=== PATIENT | female | born 1940 | race Caucasian/White ===

== ENCOUNTER → 2016-05-21 | Outpatient (CLI) | payer OTHER | LOC: BHFA 13:30 | PROVIDERS: ATTEND Internal Medicine Interventional Cardiology | DX: R06.02 Shortness of breath (principal); I47.1 Supraventricular tachycardia | CPT/HCPCS: 78452; 93017; A9500 ==

== ENCOUNTER 2016-10-10 09:36 | Emergency (ER) | payer OTHER ==
--- NOTE | 2016-10-10 09:44 | EDPHY ---
HPI/HX/ROS/PE/MDM Narrative: CHIEF COMPLAINT: SVT HPI: The patient is a 76-year-old female with history of SVT, brought in by EMS with sudden onset of rapid heart rate this morning at 8:30 a.m. The patient was walking around and felt very weak. She had a rapid heart rate at that time. Her extremities began to tingle. No associated chest pain. Patient states symptoms felt similar to previous SVT. EMS arrived, cardiac rhythm strip revealed SVT. Patient received 12mg Adenosine during transport and converted to normal sinus rhythm. BP in the field was 126/86. She received 4mg Zofran during transport. 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 REVIEW OF SYSTEMS: Aside from elements discussed in the HPI, a comprehensive 10-point review of systems was reviewed and is negative. PMH: Hypothyroid, SVT, Hypothyroid. SOCIAL HISTORY: . Retired. PHYSICAL EXAM: General: Patient is alert, in no acute distress. ENT: Eyes are normal to inspection. ENT inspection normal. Neck: Normal inspection. Full range of motion. Respiratory: No respiratory distress. Breath sounds normal bilaterally. Cardiovascular: Regular rate and rhythm. Strong peripheral pulses. Abdomen: The abdomen is nontender to palpation. There are no peritoneal signs. There are normal bowel sounds. Back: Normal to inspection. No tenderness to palpation. Skin: Normal color. No rash. Warm and dry. Extremities: Normal appearance. Full range of motion. Neuro: Oriented x3. Normal motor function. Normal sensory function. ED Course: Plan for CBC and CHEM, and Troponin. EKG was ordered and interpreted by myself. Please see FRS system for official reading: Sinus tachycardia, rate 112. 11:15 a.m.: I discussed findings with the patient. CBC and CHEM are unremarkable. Patient is feeling better. Troponin is pending. 12:00 p.m.: I reevaluated the patient, she is not feeling very well. I ordered repeat EKG. Patient has normal troponin. Repeat EKG is normal. Please see FRS system for official reading. Plan to discharge patient home. She will followup with [facility]. MDM: This patient presents after what sounds like a clear episode of SVT, terminated prior to arrival, with history of same. She remained asymptomatic in the ED with no signs of recurrent arrhythmia or ACS. There is no report of chest pain to suggest PE. The patient is not hyperthyroid. I offered her admission to the hospital for further workup and observation but she declines. We discussed strict return precautions. At time of discharge, her HR has normalized. - Data Points Laboratory Results: Laboratory Results 10/10/16 10:05 10/10/16 10:05 10/10/16 10/10/16 10/10/16 10:08 10:05 10:05 WBC 5.68 10^3/uL 10^3/uL (3.80-9.50) RBC 5.10 10^6/uL 10^6/uL (4.18-5.33) Hgb 15.1 g/dL g/dL (12.6-16.3) Hct 44.0 % % (38.0-47.0) MCV 86.3 fL fL (81.5-99.8) MCH 29.6 pg pg (27.9-34.1) MCHC 34.3 g/dL g/dL (32.4-36.7) RDW 13.2 % % (11.5-15.2) Plt Count 165 10^3/uL 10^3/uL (150-400) MPV 9.5 fL fL (8.7-11.7) Neut % (Auto) 78.1 % H % (39.3-74.2) Lymph % (Auto) 12.0 % L % (15.0-45.0) [place] % (Auto) 8.5 % % (4.5-13.0) Eos % (Auto) 0.5 % L % (0.6-7.6) Baso % (Auto) 0.5 % % (0.3-1.7) Nucleat RBC Rel Count 0.0 % % (0.0-0.2) Absolute Neuts (auto) 4.44 10^3/uL 10^3/uL (1.70-6.50) Absolute Lymphs (auto) 0.68 10^3/uL L 10^3/uL (1.00-3.00) Absolute Monos (auto) 0.48 10^3/uL 10^3/uL (0.30-0.80) Absolute Eos (auto) 0.03 10^3/uL 10^3/uL (0.03-0.40) Absolute Basos (auto) 0.03 10^3/uL 10^3/uL (0.02-0.10) Absolute Nucleated RBC 0.00 10^3/uL 10^3/uL (0-0.01) Immature Gran % 0.4 % % (0.0-1.1) Immature Gran # 0.02 10^3/uL 10^3/uL (0.00-0.10) Sodium 139 mEq/L mEq/L (134-144) Potassium 3.4 mEq/L L mEq/L (3.5-5.2) Chloride 104 mEq/L mEq/L (97-110) Carbon Dioxide 24 mEq/l mEq/l (22-31) Anion Gap 11 mEq/L mEq/L (8-16) BUN 10 mg/dL mg/dL (7-23) Creatinine 0.7 mg/dL mg/dL (0.6-1.0) Estimated GFR > 60 Glucose 71 mg/dL mg/dL (70-100) Calcium 8.9 mg/dL mg/dL (8.5-10.4) Troponin I 0.013 ng/mL ng/mL (0-0.034) TSH 6.030 uIU/mL H uIU/mL (0.465-4.680) General Initial Vital Signs: Initial Vital Signs Temperature (C) 36.4 C 10/10/16 09:36 Heart Rate 106 H 10/10/16 09:36 Respiratory Rate 16 10/10/16 09:36 Blood Pressure 156/98 H 10/10/16 09:36 O2 Sat (%) 98 10/10/16 09:36 O2 Delivery Mode Room Air Allergies/Adverse Reactions: egg Allergy (Verified 05/23/12 08:38) Penicillins Allergy (Verified 05/23/12 08:38) Sulfa (Sulfonamide Antibiotics) [Sulfa(Sulfonamide Antibiotics)] Allergy ( Verified 05/23/12 08:38) Home Medications: Medication Instructions Recorded Atenolol [Tenormin 25 mg (RX)] 25 mg PO DAILY 05/23/12 Methimazole [Tapazole 5MG (RX)] 5 mg PO 05/23/12 Departure - Departure Disposition: Home, Routine, Self-Care Clinical Impression: SVT (supraventricular tachycardia) Condition: Good Instructions: Supraventricular Tachycardia (ED) Additional Instructions: Please followup with [facility] for further evaluation. Return to the Emergency Department with recurrent symptoms. Referrals: Edgardo Jansen MD [Primary Care Provider] - As per Instructions [facility] [Provider Group] - As per Instructions Report Scribed for: Stan Garcia Report Scribed by: Baylee Joseph Date of Report: 10/10/16 Time of Report: 09:44 Physician Review and Approval Statement: Portions of this note were transcribed by a medical charge entry specialist. I personally performed the history, physical exam, and medical decision-making; and confirmed the accuracy of the information in the transcribed note.
[2016-10-10 09:51] VITALS: TEMP 97.5
--- NOTE | 2016-10-10 10:00 | CPEKG ---
Heart Rate: 112 RR Interval: 536 P-R Interval: 176 QRSD Interval: 78 QT Interval: 328 QTC Interval: 448 P [place]: 85 QRS [place]: -5 T Wave [place]: 54 EKG Severity - OTHERWISE NORMAL ECG - EKG Impression: SINUS TACHYCARDIA Electronically Signed By: Mushtaq Rogel 11-Oct-2016 08:04:26
[2016-10-10 10:17] LABS: % IMMATURE GRANULYOCYTES 0.4 % (0.0-1.1); ABSOLUTE IMMATURE GRANULOCYTES 0.02 10^3/uL (0.00-0.10); ADD DIFF? NO; ADD MORPH? NO; ADD SCAN? NO; ATYPICAL LYMPHOCYTE FLAG 0 (0-99); FRAGMENT RBC FLAG 0 (0-99); HEMOGLOBIN 15.1 g/dL (12.6-16.3); LEFT SHIFT FLG 0 (0-99); LIPEMIA HEMOLYSIS FLAG 90 (0-99); MEAN CELL HEMOGLOBIN 29.6 pg (27.9-34.1); MEAN CELL HEMOGLOBIN CONCENTR. 34.3 g/dL (32.4-36.7); MEAN CELL VOLUME 86.3 fL (81.5-99.8); MEAN PLATELET VOLUME 9.5 fL (8.7-11.7); PLATELET CLUMPS FLAG 10 (0-99); PLATELET COUNT 165 10^3/uL (150-400); RED CELL DISTRIBUTION WIDTH 13.2 % (11.5-15.2)
[2016-10-10 10:29] LABS: ANION GAP 11 mEq/L (8-16); CALCIUM 8.9 mg/dL (8.5-10.4); CARBON DIOXIDE 24 mEq/l (22-31); CHLORIDE 104 mEq/L (97-110); CREATININE 0.7 mg/dL (0.6-1.0); GLOMERULAR FILTRATION RATE > 60; GLUCOSE 71 mg/dL (70-100); POTASSIUM 3.4 mEq/L (3.5-5.2); SODIUM 139 mEq/L (134-144)
--- NOTE | 2016-10-10 12:18 | CPEKG ---
Heart Rate: 96 RR Interval: 625 P-R Interval: 180 QRSD Interval: 72 QT Interval: 336 QTC Interval: 425 P [place]: 79 QRS [place]: 25 T Wave [place]: 55 EKG Severity - NORMAL ECG - EKG Impression: SINUS RHYTHM Electronically Signed By: Mushtaq Rogel 11-Oct-2016 08:04:17
[2016-10-10 12:34] VITALS: BP 129/71; PULSE 101; RESP 16; O2SAT 98
== END 2016-10-10 12:30 | disposition home or self-care (01) ==
LOC: EDUNIT#
DX: I47.1 Supraventricular tachycardia (principal)

== ENCOUNTER → 2016-10-23 | Outpatient (CLI) | payer OTHER | LOC: BHFA 11:00 | PROVIDERS: ATTEND Internal Medicine Cardiovascular Disease | DX: I47.1 Supraventricular tachycardia (principal); R55 Syncope and collapse; R00.2 Palpitations ==

== ENCOUNTER → 2016-11-14 | Outpatient (CLI) | payer OTHER | LOC: FIMAGING 08:17 | PROVIDERS: ATTEND Family Medicine | DX: M51.36 Other intervertebral disc degeneration, lumbar region (principal); M51.37 Other intervertebral disc degeneration, lumbosacral region; M12.88 Other specific arthropathies, not elsewhere classified, other specified site; M99.73 Connective tissue and disc stenosis of intervertebral foramina of lumbar region; M51.26 Other intervertebral disc displacement, lumbar region ==

== ENCOUNTER 2016-12-28 13:57 | Emergency (ER) | payer OTHER ==
[2016-12-28 16:31] LABS: COLOR YELLOW; LEUKOCYTE ESTERASE,URINE 2+ (NEGATIVE); NITRITE,URINE NEGATIVE (NEGATIVE)
--- NOTE | 2016-12-28 16:32 | CPEKG ---
Heart Rate: 62 RR Interval: 968 P-R Interval: 208 QRSD Interval: 86 QT Interval: 412 QTC Interval: [address] [place]: 55 QRS [place]: 12 T Wave [place]: 44 EKG Severity - NORMAL ECG - EKG Impression: SINUS RHYTHM Electronically Signed By: Hiram Monteiro 28-Dec-2016 15:45:05
--- NOTE | 2016-12-28 16:44 | EDPHY ---
H & P Time Seen by Provider: 12/28/16 15:58 HPI/ROS: CHIEF COMPLAINT: Tired chills and no energy HISTORY OF PRESENT ILLNESS: This patient presents with 3 months of multiple symptoms including feeling some pressure in her legs and some discomfort in her feet. She states that at night both her legs will feel very weak when she tries to get up to go to the bathroom and she walks around for about 5 minutes she feels better. She had neurology workup including an MRI which was performed on November 14 with noted some mild spinal stenosis but no cauda equina syndrome or other surgical process. She also has thyroid disease and is being monitored for that. Over the past 3 days she has felt just more tired and with less energy. She has had occasional chills but no actual fever. No cough or chest pain or shortness of breath. No dysuria or hematuria. No injury or fall. No headache or visual symptoms. REVIEW OF SYSTEMS: Eye: no change in vision ENT: no sore throat Cardiac: no chest pain or syncope; intermittent sensation of palpitations Pulmonary: no cough or SOB Abdomen: no vomiting, diarrhea, abdominal pain Musculoskeletal: no back pain Skin: no rash Neuro: no headache, HPI Constitutional: HPI : no urinary symptoms A comprehensive 10 point review of systems is otherwise negative aside from elements mentioned in the history of present illness. PAST MEDICAL HISTORY: Includes hypothyroid, SVT, breast cancer. Social history: Lives independently General Appearance: Alert and conversant, cooperative. Eyes: No scleral icterus. ENT, Mouth: Normal mucous membranes. Respiratory: Normal respiratory effort, breath sounds equal, lungs are clear to auscultation. Cardiovascular: Regular rate and rhythm. Gastrointestinal: Abdomen is soft and non tender. Neurological: Alert and oriented x3. Normally conversant. Face symmetric, normal movement and sensation in all extremities. Toes downgoing, no clonus. Skin: Warm and dry, no rashes. Musculoskeletal: No peripheral edema and no joint swelling. Psychiatric: Not agitated. Emergency Department course/MDM: 1705: Results discussed, no evidence of upper tract infection, Macrobid for 7 days. Normal creatinine. No evidence of pyelonephritis. Further leg weakness symptoms are stable and can be evaluated by her primary care physician. I do not think she has acute neurosurgical process, or Guillain -[place], acute demyelinating process, or spinal cord compromise. Smoking Status: Never smoked Constitutional: Initial Vital Signs Temperature (C) 36.7 C 12/28/16 14:06 Heart Rate 74 12/28/16 14:06 Respiratory Rate 12 12/28/16 14:06 Blood Pressure 139/69 H 12/28/16 14:06 O2 Sat (%) 95 12/28/16 14:06 O2 Delivery Mode Room Air Allergies/Adverse Reactions: egg Allergy (Verified 05/23/12 08:38) Penicillins Allergy (Verified 05/23/12 08:38) Sulfa (Sulfonamide Antibiotics) [Sulfa(Sulfonamide Antibiotics)] Allergy ( Verified 05/23/12 08:38) Home Medications: Medication Instructions Recorded Atenolol [Tenormin 25 mg (RX)] 25 mg PO DAILY 05/23/12 Methimazole [Tapazole 5MG (RX)] 5 mg PO 05/23/12 Nitrofurantoin Macrobid [Macrobid] 100 mg PO Q12 #14 cap 12/28/16 Medical Decision Making - Diagnostics EKG Interpretation: 12-lead EKG interpreted by me; official reading is in trace master. My interpretation is sinus rhythm rate 62 otherwise normal. - Data Points Laboratory Results: Laboratory Results 12/28/16 16:19 12/28/16 16:35 12/28/16 12/28/16 12/28/16 16:35 16:25 16:19 WBC 5.75 10^3/uL 10^3/uL (3.80-9.50) RBC 4.71 10^6/uL 10^6/uL (4.18-5.33) Hgb 14.0 g/dL g/dL (12.6-16.3) Hct 41.4 % % (38.0-47.0) MCV 87.9 fL fL (81.5-99.8) MCH 29.7 pg pg (27.9-34.1) MCHC 33.8 g/dL g/dL (32.4-36.7) RDW 12.8 % % (11.5-15.2) Plt Count 190 10^3/uL 10^3/uL (150-400) MPV 9.9 fL fL (8.7-11.7) Neut % (Auto) 69.7 % % (39.3-74.2) Lymph % (Auto) 18.6 % % (15.0-45.0) [place] % (Auto) 8.9 % % (4.5-13.0) Eos % (Auto) 0.9 % % (0.6-7.6) Baso % (Auto) 1.0 % % (0.3-1.7) Nucleat RBC Rel Count 0.0 % % (0.0-0.2) Absolute Neuts (auto) 4.01 10^3/uL 10^3/uL (1.70-6.50) Absolute Lymphs (auto) 1.07 10^3/uL 10^3/uL (1.00-3.00) Absolute Monos (auto) 0.51 10^3/uL 10^3/uL (0.30-0.80) Absolute Eos (auto) 0.05 10^3/uL 10^3/uL (0.03-0.40) Absolute Basos (auto) 0.06 10^3/uL 10^3/uL (0.02-0.10) Absolute Nucleated RBC 0.00 10^3/uL 10^3/uL (0-0.01) Immature Gran % 0.9 % % (0.0-1.1) Immature Gran # 0.05 10^3/uL 10^3/uL (0.00-0.10) Sodium 135 mEq/L mEq/L (134-144) Potassium 4.2 mEq/L mEq/L (3.5-5.2) Chloride 99 mEq/L mEq/L (97-110) Carbon Dioxide 25 mEq/l mEq/l (22-31) Anion Gap 11 mEq/L mEq/L (8-16) BUN 16 mg/dL mg/dL (7-23) Creatinine 0.7 mg/dL mg/dL (0.6-1.0) Estimated GFR > 60 Glucose 86 mg/dL mg/dL (70-100) Calcium 9.7 mg/dL mg/dL (8.5-10.4) Urine Color YELLOW Urine Appearance MODERATELY TURBID Urine pH 7.0 (5.0-7.5) Ur Specific [place] 1.011 (1.002-1.030) Urine Protein NEGATIVE (NEGATIVE) Urine Ketones NEGATIVE (NEGATIVE) Urine Blood NEGATIVE (NEGATIVE) Urine Nitrate NEGATIVE (NEGATIVE) Urine Bilirubin NEGATIVE (NEGATIVE) Urine Urobilinogen NEGATIVE EU EU (0.2-1.0) Ur Leukocyte Esterase 2+ H (NEGATIVE) Urine RBC 1-3 /hpf /hpf (0-3) Urine WBC 15-25 /hpf H /hpf (0-3) Ur Epithelial Cells NONE SEEN /lpf /lpf (NONE-1+) Amorphous Sediment PRESENT /hpf /hpf (NONE-1+) Urine Bacteria TRACE /hpf H /hpf (NONE SEEN) Urine Mucus TRACE /lpf /lpf (NONE-1+) Urine Glucose NEGATIVE (NEGATIVE) Medications Given: Discontinued Medications Nitrofurantoin Macrocrystals (Macrobid) 100 mg PO EDNOW ONE PRN Reason: Protocol Stop: 12/28/16 17:06 Last Admin: 12/28/16 17:22 Dose: 100 mg Departure - Departure Disposition: Home, Routine, Self-Care Clinical Impression: Urinary tract infection Qualifiers: Urinary tract infection type: acute cystitis Hematuria presence: without hematuria Qualified Code(s): N30.00 - Acute cystitis without hematuria Condition: Good Instructions: Urinary Tract Infection in Women (ED) Referrals: Edgardo Jansen MD [Primary Care Provider] - As per Instructions Prescriptions: Nitrofurantoin Macrobid [Macrobid] 100 mg PO Q12 #14 cap
[2016-12-28 16:47] LABS: % IMMATURE GRANULYOCYTES 0.9 % (0.0-1.1); ABSOLUTE IMMATURE GRANULOCYTES 0.05 10^3/uL (0.00-0.10); ADD DIFF? NO; ADD MORPH? NO; ADD SCAN? NO; ATYPICAL LYMPHOCYTE FLAG 20 (0-99); FRAGMENT RBC FLAG 0 (0-99); HEMATOCRIT 41.4 % (38.0-47.0); LEFT SHIFT FLG 0 (0-99); LIPEMIA HEMOLYSIS FLAG 90 (0-99); MEAN CELL HEMOGLOBIN 29.7 pg (27.9-34.1); MEAN CELL HEMOGLOBIN CONCENTR. 33.8 g/dL (32.4-36.7); MEAN CELL VOLUME 87.9 fL (81.5-99.8); MEAN PLATELET VOLUME 9.9 fL (8.7-11.7); PLATELET CLUMPS FLAG 10 (0-99); PLATELET COUNT 190 10^3/uL (150-400); RED BLOOD CELL COUNT 4.71 10^6/uL (4.18-5.33); RED CELL DISTRIBUTION WIDTH 12.8 % (11.5-15.2)
[2016-12-28 16:52] LABS: AMORPHOUS PRESENT /hpf (NONE-1+); BACTERIA TRACE /hpf (NONE SEEN); MUCUS TRACE /lpf (NONE-1+); WBC,URINE 15-25 /hpf (0-3)
[2016-12-28 17:05] LABS: ANION GAP 11 mEq/L (8-16); CALCIUM 9.7 mg/dL (8.5-10.4); CARBON DIOXIDE 25 mEq/l (22-31); CHLORIDE 99 mEq/L (97-110); CREATININE 0.7 mg/dL (0.6-1.0); GLOMERULAR FILTRATION RATE > 60; GLUCOSE 86 mg/dL (70-100); POTASSIUM 4.2 mEq/L (3.5-5.2); SODIUM 135 mEq/L (134-144)
[2016-12-28] MEDS ORDERED: NITROFURANTOIN MACROBID 100 MG CAP PO ONE (17:05)
[2016-12-28 17:40] VITALS: BP 126/81; PULSE 61; RESP 20; TEMP 97.5; O2SAT 97
== END 2016-12-28 17:40 | disposition home or self-care (01) ==
DX: N30.00 Acute cystitis without hematuria (principal); B96.89 Other specified bacterial agents as the cause of diseases classified elsewhere; Z85.3 Personal history of malignant neoplasm of breast

== ENCOUNTER → 2017-02-05 | Outpatient (CLI) | payer OTHER | LOC: FIMAGING 07:20 | PROVIDERS: ATTEND Neurological Surgery | DX: M51.36 Other intervertebral disc degeneration, lumbar region (principal); M48.06 Spinal stenosis, lumbar region; M54.16 Radiculopathy, lumbar region; R20.2 Paresthesia of skin ==

== ENCOUNTER → 2017-02-06 | Outpatient (CLI) | payer OTHER | LOC: BHFA 11:00 | PROVIDERS: ATTEND Internal Medicine Cardiovascular Disease | DX: I47.1 Supraventricular tachycardia (principal) ==

== ENCOUNTER 2017-03-25 07:06 | Observation (INO) | payer OTHER ==
[2017-03-25] MEDS ORDERED: NS 1,000 ML IV ONE (07:15)
[2017-03-25] MEDS ORDERED: LIDOCAINE 1% 300 MG/30 ML SDV ONE (07:29)
[2017-03-25] MEDS ORDERED: BUPIVACAINE 0.5% 30 ML SDV ONE (07:29)
[2017-03-25] MEDS ORDERED: HEPARIN 10,000 UNIT/10 ML MDV ONE (07:29)
[2017-03-25] MEDS ORDERED: ISOPROTERENOL HCL/D5W 0.2 MG/50 ML BAG IV ONE (07:29)
--- NOTE | 2017-03-25 07:36 | CPEKG ---
Heart Rate: 88 RR Interval: 682 P-R Interval: 180 QRSD Interval: 82 QT Interval: 360 QTC Interval: 436 P [place]: 78 QRS [place]: 1 T Wave [place]: 53 EKG Severity - OTHERWISE NORMAL ECG - EKG Impression: SINUS RHYTHM EKG Impression: VENTRICULAR PREMATURE COMPLEX Electronically Signed By: Keven Horne 25-Mar-2017 16:55:16
[2017-03-25 07:50] LABS: % IMMATURE GRANULYOCYTES 0.7 % (0.0-1.1); ABSOLUTE IMMATURE GRANULOCYTES 0.03 10^3/uL (0.00-0.10); ADD DIFF? NO; ADD MORPH? NO; ADD SCAN? NO; ATYPICAL LYMPHOCYTE FLAG 0 (0-99); FRAGMENT RBC FLAG 0 (0-99); HEMATOCRIT 41.7 % (38.0-47.0); HEMOGLOBIN 14.8 g/dL (12.6-16.3); LEFT SHIFT FLG 0 (0-99); LIPEMIA HEMOLYSIS FLAG 90 (0-99); MEAN CELL HEMOGLOBIN 30.4 pg (27.9-34.1); MEAN CELL HEMOGLOBIN CONCENTR. 35.5 g/dL (32.4-36.7); MEAN CELL VOLUME 85.6 fL (81.5-99.8); MEAN PLATELET VOLUME 9.8 fL (8.7-11.7); PLATELET CLUMPS FLAG 0 (0-99); PLATELET COUNT 189 10^3/uL (150-400); RED BLOOD CELL COUNT 4.87 10^6/uL (4.18-5.33); RED CELL DISTRIBUTION WIDTH 13.2 % (11.5-15.2)
[2017-03-25 08:00] LABS: INR 0.93 (0.83-1.16); PROTIME(PATIENT) 12.4 SEC (12.0-15.0)
[2017-03-25 08:01] LABS: APTT 30.3 SEC (23.0-38.0)
[2017-03-25 08:04] LABS: ANION GAP 9 mEq/L (8-16); CARBON DIOXIDE 25 mEq/l (22-31); CHLORIDE 104 mEq/L (97-110); CREATININE 0.7 mg/dL (0.6-1.0); GLOMERULAR FILTRATION RATE > 60; GLUCOSE 90 mg/dL (70-100); MAGNESIUM 1.8 mg/dL (1.6-2.3); POTASSIUM 3.8 mEq/L (3.5-5.2); SODIUM 138 mEq/L (134-144)
[2017-03-25] MEDS ORDERED: MIDAZOLAM 2 MG/2 ML VIAL IVP ONE (08:32)
--- NOTE | 2017-03-25 08:34 | PDANEPAE ---
ANE History of Present Illness 76 yo for ep abaltion for svt ANE Past Medical History - Cardiovascular History Hx Arrhythmias: Yes - Pulmonary History Hx Oxygen in Use at Home: No Hx Sleep Apnea: No - Endocrine History Hx Diabetes: No ANE Review of Systems Review of Systems: - Exercise capacity METS (RN): 4 METS ANE Patient History - Allergies Allergies/Adverse Reactions: ciprofloxacin [From Cipro] Allergy (Verified 03/25/17 07:14) Penicillins Allergy (Verified 03/18/17 11:54) Hives Sulfa (Sulfonamide Antibiotics) [Sulfa(Sulfonamide Antibiotics)] Allergy ( Verified 03/18/17 11:54) Hives - Home Medications Home medications: home medication list seen and reviewed Home Medications: Atenolol [Tenormin 25 mg (RX)] 12.5 mg PO DAILY 05/23/12 [Last Taken Unknown] Methimazole [Tapazole 5MG (RX)] 5 mg PO MWF 05/23/12 [Last Taken Unknown] Clobetasol 0.05% [Temovate Cream] 1 alex TP WE@03/18/17 [Last Taken Unknown] Estradiol [Estrace Vaginal (*)] 1 alex VG MWF@03/18/17 [Last Taken Unknown] Glucosamine Sulfate [Glucosamine Sulfate 500 MG (*)] 500 mg PO BID 03/18/17 [ Last Taken Unknown] Herbals/Supplements -Info Only 1 ea PO DAILY 03/18/17 [Last Taken Unknown] Methimazole [Tapazole 5MG (*)] 2.5 mg PO S[place]SA 03/18/17 [Last Taken Unknown] - NPO status NPO Status: no food or drink >8 hours - Smoking Hx Smoking Status: Never smoked ANE Labs/Vital Signs - Labs Result Diagrams: 03/25/17 07:36 03/25/17 07:36 - Vital Signs Height: 5 ft 6.14 in Weight: 64.4 kg ANE Physical Exam - Airway Neck exam: FROM Mallampati Score: Class 2 - Pulmonary Pulmonary: no respiratory distress - Cardiovascular Cardiovascular: regular rate and rhythym - ASA Status ASA Status: II ANE Anesthesia Plan Anesthesia Plan: general endotracheal anesthesia
[2017-03-25] MEDS ORDERED: REMIFENTANIL HCL 1 MG VIAL ONE ×2 (08:44→10:47)
[2017-03-25] MEDS ORDERED: PROPOFOL/EMULSION 500 MG/50 ML BOTTLE IV ONE ×2 (08:44→10:48)
[2017-03-25] MEDS ORDERED: fentaNYL 100 MCG/2 ML INJ ONE (08:44)
--- NOTE | 2017-03-25 11:17 | PDHPUP ---
History & Physical Update H&P update statement: This history and physical update is based on an assessment of the patient which was completed after admission or registration (within 24 hours), but prior to the surgery/procedure. H&P update: H&P reviewed & patient examined, no change in patient's condition since H&P completed
[2017-03-25] MEDS ORDERED: PROTAMINE SULFATE 50 MG/5 ML VIAL IVP ONE (11:25)
--- NOTE | 2017-03-25 11:40 | EPPROC ---
Electrophysiology Procedure Note: ELECTROPHYSIOLOGIC STUDY AND CATHETER MEDIATED ABLATION OF SLOW/FAST AV ANTONIA REENTRY TACHYCARDIA PROCEDURES PERFORMED: 08499-33 EP evaluation with RA/RV/LA pace/record, with arrhythmia induction 30073-80 EP evaluation with RA/RV pace record, insert/reposition catheter, with arrhythmia induction 17485 Intracardiac catheter ablation, SVT arrhythmogenic focus 52591 3D mapping Fluoroscopy INDICATION: Recurrent SVT PROCEDURE: Catheters & Anesthesia: The patient arrived in the Electrophysiology Laboratory in the fasting state. The right clavicular region, right groin, and left groin area were prepped and draped in the usual sterile manner. Anesthesiologist Dr. Louie Garcia administered general anesthesia. Appropriate non-invasive blood pressure, pulse oximetry and end-tidal CO2 monitoring was established. All catheters were placed percutaneously using the modified Seldinger technique , and advanced into position under fluoroscopic guidance. One #6 Filipino hexapolar non-deflectable electrode catheter was inserted into the right atrial appendage via the left femoral vein (2mm spacing; except the proximal ring which was 25cm from the tip used for unipolar recordings). One #7 [place] deflectable octapolar electrode catheter was advanced to the His-bundle position via the left femoral vein (2mm spacing). One #7 [place] deflectable quadrapolar catheter was advanced to the anteroseptal right ventricle via the right femoral vein. One #7 [place] deflectable catheter with 10 pairs of electrodes was placed via the right femoral vein into the coronary sinus. Heparin was given to keep ACT > 200 s. Programmed stimulation was performed from the right atrium, right ventricle and coronary sinus (left atrium). Parahisian pacing demonstrated constant H-A interval with changing V-A intervals and stimulus-A intervals during capture and loss of capture of proximal RBB proving retrograde conduction over AV node. AVNRT was induced easily during infusion of isoproterenol 1 mcg/min. Ventricular extrastimuli delivered during tachycardia without altering antegrade His bundle activation did not advance next atrial potential, indicating that the tachycardia was not utilizing an accessory pathway for retrograde conduction. VA interval was 20 ms. Mapping of the right atrium and coronary sinus during AVNRT identified earliest atrial activation above the tendon of [place] at a level slightly posterior to the level of the His bundle, consistent with retrograde conduction over the fast AV antonia pathway. A #8 [place] deflectable quadrapolar electrode catheter (2mm-5mm-2mm spacing) with 4 mm tip electrode and sensor for the 3D mapping Carto system was advanced to the right atrium. 3 D mapping of the inter-atrial septum and coronary sinus was performed and location of the AV node was marked. A SL2 sheath was used. RF applications were delivered to the region between the tricuspid annulus and the coronary sinus ostium, at the level of the upper edge of the coronary sinus ostium. Radiofrequency applications were also delivered along the roof of the proximal coronary sinus. Junctional rhythm occurred during all of the RF applications. SVT was inducible and therefore 6 mm cryo catheter was placed and 2 lesions delivered to the midseptal TA. AVNRT was not inducible after this. Nonsustained atrial tachycardia, CL 490 ms seen after ablation of AVNRT. Not targeted for ablation. Programmed stimulation was continued post ablation at baseline and during graded doses of isoproterenol upto 2mcg/min. Sustained AVNRT was not inducible. There were no echo beats. The catheters were removed. The long sheath was changed to a short 9 Fr sheath. The patient was transferred to the cardiovascular holding area in stable condition. Vascular access sheaths were removed in the holding area. There were no apparent complications. Results: A. Spontaneous Intervals: Pre ablation SCL 840 ms AH 95 ms HV 40 ms Post ablation SCL 770 ms AH 80 ms HV 40 ms B. Antegrade AV antonia function (decremental pacing) Pre ablation FPERP 460 ms SPERP 420 ms WBB CL 410 ms Post ablation FPERP 450 ms WBB CL 440 ms C. Retrograde AV antonia function (decremental pacing) Pre ablation FPERP 840 ms WBB CL 830 ms D. Arrhythmias: Sustained slow/fast AVNRT Cycle length 320 ms, AH interval 270 ms, ELISE interval 50 ms VA interval 20 ms CONCLUSIONS 1. AV antonia reentrant tachycardia using the slow AV antonia pathway for antegrade conduction and the fast AV antonia pathway for retrograde conduction. ( Slow/fast AVNRT). 2. Nonsustained atrial tachycardia, CL 490 ms seen after ablation of AVNRT. Not targeted for ablation. 3. Successful ablation of the slow AV antonia pathway with elimination of 1:1 antegrade conduction over the slow AV antonia pathway, all retrograde conduction over the slow AV antonia pathway and the inducibility of AVNRT. 4. No complications. Patient Problems: Problems Problem Status Onset Supraventricular tachycardia Acute
[2017-03-25] MEDS ORDERED: ONDANSETRON 4 MG/2 ML VIAL IVP PRN (11:55)
[2017-03-25] MEDS ORDERED: fentaNYL 100 MCG/2 ML INJ IVP PRN (11:55)
[2017-03-25] MEDS ORDERED: NALOXONE HCL 0.4 MG/ML INJ IVP PRN (11:55)
--- NOTE | 2017-03-25 11:56 | POSTANESTH ---
Post Anesthetic Evaluation Cardiovascular Status: Normal, Stable Respiratory Status: Normal, Stable Level of Consciousness/Mental Status: Can Participate in Eval Pain Control: Adequate, Prn Tx Ordered Nausea/Vomiting Control: Adequate, Prn Tx Ordered Complications Possibly Related to Anesthesia: None Noted
[2017-03-25] MEDS ORDERED: ATROPINE SULFATE 1 MG/10 ML SYR ONE (11:59)
[2017-03-25 12:36] LABS: ANION GAP 11 mEq/L (8-16); CALCIUM 9.3 mg/dL (8.5-10.4); CARBON DIOXIDE 23 mEq/l (22-31); CHLORIDE 107 mEq/L (97-110); CREATININE 0.6 mg/dL (0.6-1.0); GLOMERULAR FILTRATION RATE > 60; GLUCOSE 122 mg/dL (70-100); MAGNESIUM 1.6 mg/dL (1.6-2.3); POTASSIUM 3.6 mEq/L (3.5-5.2); SODIUM 141 mEq/L (134-144)
--- NOTE | 2017-03-25 13:04 | CPEKG ---
Heart Rate: 108 RR Interval: 556 P-R Interval: 180 QRSD Interval: 76 QT Interval: 344 QTC Interval: 461 P [place]: 76 QRS [place]: 9 T Wave [place]: 45 EKG Severity - OTHERWISE NORMAL ECG - EKG Impression: SINUS TACHYCARDIA EKG Impression: VENTRICULAR PREMATURE COMPLEX Electronically Signed By: Keven Horne 25-Mar-2017 16:55:22
[2017-03-25] MEDS: METHIMAZOLE 5 MG TAB PO SCH ×2 (14:42→15:37)
--- NOTE | 2017-03-25 15:02 | ASMTCASEMG ---
Living Arrangements What is your living Answers: With Spouse arrangement? Who do you live with? Type Of Residence What kind of residence do Answers: House you live in? Discharge Plan Comments Coordination Status Comments Notes: Pt is a 76 y/o female admitted for SVT. Interventional cardiac procedure has been ordered. Pt had a EP study done today. No therapies ordered at this time. Anticipates that pt will d/c independent w/out any needs. CM available for changes. Date Signed: 03/25/2017 03:02 PM Electronically Signed By:VERO Vazquez
[2017-03-25] MEDS: GLUCOSAMINE SULF 500 MG CAP PO SCH (21:07)
[2017-03-26 05:35] LABS: % IMMATURE GRANULYOCYTES 0.4 % (0.0-1.1); ABSOLUTE IMMATURE GRANULOCYTES 0.03 10^3/uL (0.00-0.10); ADD DIFF? NO; ADD MORPH? NO; ADD SCAN? NO; ATYPICAL LYMPHOCYTE FLAG 0 (0-99); FRAGMENT RBC FLAG 0 (0-99); HEMATOCRIT 35.8 % (38.0-47.0); HEMOGLOBIN 12.2 g/dL (12.6-16.3); LEFT SHIFT FLG 0 (0-99); LIPEMIA HEMOLYSIS FLAG 90 (0-99); MEAN CELL HEMOGLOBIN 29.5 pg (27.9-34.1); MEAN CELL HEMOGLOBIN CONCENTR. 34.1 g/dL (32.4-36.7); MEAN CELL VOLUME 86.5 fL (81.5-99.8); MEAN PLATELET VOLUME 10.5 fL (8.7-11.7); PLATELET CLUMPS FLAG 0 (0-99); PLATELET COUNT 170 10^3/uL (150-400); RED BLOOD CELL COUNT 4.14 10^6/uL (4.18-5.33); RED CELL DISTRIBUTION WIDTH 13.2 % (11.5-15.2)
[2017-03-26 05:56] LABS: ANION GAP 9 mEq/L (8-16); CALCIUM 8.6 mg/dL (8.5-10.4); CARBON DIOXIDE 23 mEq/l (22-31); CHLORIDE 102 mEq/L (97-110); CREATININE 0.6 mg/dL (0.6-1.0); GLOMERULAR FILTRATION RATE > 60; GLUCOSE 85 mg/dL (70-100); POTASSIUM 3.8 mEq/L (3.5-5.2); SODIUM 134 mEq/L (134-144)
[2017-03-26 05:57] LABS: INR 1.04 (0.83-1.16); PROTIME(PATIENT) 13.5 SEC (12.0-15.0)
[2017-03-26 06:09] LABS: CREATINE KINASE-MB FRACTION 2.55 ng/mL (0.00-3.19); TROPONIN I 0.484 ng/mL (0.000-0.034)
[2017-03-26] MEDS ORDERED: METHIMAZOLE 5 MG TAB PO SCH (08:00)
[2017-03-26 08:27] VITALS: BP 97/59; PULSE 94; RESP 17; TEMP 97.8; O2SAT 97
[2017-03-26] MEDS ORDERED: ASPIRIN 81 MG CHEWABLE TAB PO SCH (09:00)
[2017-03-26] MEDS: GLUCOSAMINE SULF 500 MG CAP PO SCH (09:10)
--- NOTE | 2017-03-26 09:19 | CPEKG ---
Heart Rate: 85 RR Interval: 706 P-R Interval: 188 QRSD Interval: 82 QT Interval: 364 QTC Interval: 433 P [place]: 76 QRS [place]: 26 T Wave [place]: 52 EKG Severity - NORMAL ECG - EKG Impression: SINUS RHYTHM Electronically Signed By: Ab Nicole 26-Mar-2017 17:17:14
--- NOTE | 2017-03-26 09:32 | ECHO ---
[email or web address] [address] [address] Main: [phone] Fax: Transthoracic Echocardiogram Name: YAQUELIN AMBROSIO MR#: [id number] Study Date: 03/26/2017 Study Time: 08:34 AM Date of : 1940 Age: 76 year(s) Height: ( ) Weight: ( ) BSA: Gender: Female Examination: Echo Indication: F/U post EP study 97 Image Quality: Contrast: Requested by: Ab Nicole BP: 97 mmHg/59 mmHg Heart Rate: Rhythm: Indication: F/U post EP study Procedure Staff Measurement Coordinator: Erika Nielson Physician: Ab Nicole Requesting Provider: Conclusions: Normal global systolic LV function. The ejection fraction is estimated to be 70-75 %. Mild tricuspid regurgitation is present. Trace anterior pericardial effusion . Measurements: Chambers Valvular Assessment AV/MV Valvular Assessment TV/PV Normal Normal Normal Name Value Range Name Value Range Name Value Range Ao Heydi (MM): 2.9 cm (2.2 cm-3.7 AV meanP mmHg ( - ) TR Vmax: 2.70 mm/s ( - ) cm) MV E Vmax: 0.78 m/s ( - ) TR PGmax: 29 mmHg ( - ) IVSd (2D): 0.7 cm (0.6 cm-1.1 MV A Vmax: 0.96 m/s ( - ) syst. PAP: 34 mmHg ( - ) cm) MV E/A: 0.81 ( - ) PV Vmax: 1.02 m/s (0.6 m/s-0.9 LVDd (2D): 4.2 cm (3.9 cm-5.3 m/s) cm) PV PGmax: 4 mmHg ( - ) LVDs (2D): 2.1 cm (2.1 cm-4 cm) LVPWd (2D): 0.8 cm ( - ) LVEF (MOD4): 75 % (>=55 %) EF Range: 70-75 % Continued Measurements: Chambers Valvular Assessment AV/MV Valvular Assessment TV/PV Name Value Name Value Name Value LADs: 2.9 cm MV E' Septal: 0.08 m/s CVP (est.): 5 mmHg LADs Lon.5 cm MV E/E' Septal: 9.50 LA Area: 14.9 cm2 MV E/E' Lateral: 9.60 Patient: YAQUELIN AMBROSIO Study Date: 03/26/2017 Page 1 of 2 08:34 AM Findings: Left Ventricle: Normal size left ventricle. No LV hypertrophy. Normal global systolic LV function. The ejection fraction is estimated to be 70-75 %. No regional wall motion abnormality. Right Ventricle: Normal size right ventricle. Left Atrium: The left atrium is normal in size. Right Atrium: The right atrium is normal in size. Mitral Valve: The mitral valve is normal in appearance and function. Trivial mitral valve regurgitation. Aortic Valve: The aortic valve is normal in appearance and function. Tricuspid Valve: The tricuspid valve is normal in appearance and function. Mild tricuspid regurgitation is present. Pulmonic Valve: The pulmonic valve is normal in appearance and function. Trivial pulmonic valve regurgitation. Aorta: The aorta is normal. Pericardium: Trace anterior pericardial effusion . (No Signature Object) Patient: YAQUELIN AMBROSIO Study Date: 03/26/2017 Page 2 of 2 08:34 AM [id number]
--- NOTE | 2017-03-26 14:08 | ASDISCHSUM ---
Discharge Information Plan Status:Home with No Needs Medically Cleared to Leave:03/25/2017 Discharge Date:03/26/2017 11:29 AM CM D/C Disposition: ADT D/C Disposition:Home, Routine, Self-Care Projected Discharge Date:03/26/2017 12:00 AM Transportation at D/C: Discharge Delay Reason: Follow-Up Date:03/26/2017 12:00 AM Discharge Slot: Final Diagnosis: Placement Information Patient Contact Information Contact Name:FERCHO Relationship:Daughter Address: Work Phone: City: [facility] Phone: State/[employer] Code: Email: Financial Information Financial Class: Primary Plan Desc:MEDICARE OUTPATIENT Primary Plan Number:[id number] Secondary Plan Desc:HUMA[employer] Secondary Plan Number:[id number] Assessment Information [facility] Initial CM Assessment Living Arrangements What is your living Answers: With Spouse arrangement? Who do you live with? Type Of Residence What kind of residence do Answers: House you live in? Discharge Plan Comments Coordination Status Comments Notes: Pt is a 76 y/o female admitted for SVT. Interventional cardiac procedure has been ordered. Pt had a EP study done today. No therapies ordered at this time. Anticipates that pt will d/c independent w/out any needs. CM available for changes. Date Signed: 03/25/2017 03:02 PM Electronically Signed By:VERO Vazquez Intervention Information Intervention Type:*DANDRE-Signed Date of Service:03/26/2017 11:27 AM Patient Type:Observation Staff Member:Isela Stout Hours: Discipline: Severity: Comment:
[2017-03-26] MEDS ORDERED: ESTRADIOL 42.5 GM CRTUBE VG SCH (21:00)
[2017-03-26] MEDS ORDERED: CLOBETASOL 0.05% 15 GM CRTUBE TP SCH (21:00)
--- NOTE | 2017-03-27 04:40 | GDS ---
[f rep st] DISCHARGE SUMMARY DISCHARGE DIAGNOSES: 1. Atrioventricular supriya reentry tachycardia. 2. Ablation of atrioventricular supriya reentry tachycardia. BRIEF HISTORY: This is a 76-year-old woman with a 25 year history of SVT. Symptoms have been increasing recently despite beta-bianca use and she has not been able to stop these episodes as she previously had with vagal maneuvers. She has had to have ER visits to treat some episodes. HOSPITAL COURSE: Dr. Nicole performed ablation of AVNRT with ablation of slow pathway with elimination of 1:1 antegrade conduction over the slow AV supriya pathway. Nonsustained atrial tachycardia was noted with a cycle length of 490 milliseconds. This was seen after ablation of AVNRT and not targeted for ablation. The patient did well overnight without symptoms of chest pain, pressure or tightness. She has not had any shortness of breath. She has not had any bleeding at her groin sites and she denies any pain or tenderness. TESTING DONE: Echocardiogram demonstrated ejection fraction of 70%-75%. No significant valvular abnormalities. Trace anterior pericardial effusion. LAB WORK: WBC is 7.22, hemoglobin 12.2, hematocrit 35.8, platelets 170. PT 13.5, INR 1.04. Sodium is 134, potassium 3.8, chloride 102, bicarb 23, BUN 10, creatinine is 0.6, glucose 85. CK 72, CK-MB 2.55, troponin 0.484; these are elevated and to be expected post ablation. PHYSICAL EXAM: VITAL SIGNS: Blood pressure is 101/60, pulse is 79, respirations 16, temperature 36.8, O2 saturation on room air is 95%. GENERAL: She is alert and oriented, sitting up in bed, in no acute distress. CARDIAC: Regular rate, rhythm, without murmur, rub, or gallop. LUNGS: Clear to auscultation. ABDOMEN: Soft, and nontender. Groin sites are without ecchymosis or hematoma. EXTREMITIES: Warm. No discoloration. No lower extremity edema. Bilateral +2 pedal pulses. DISCHARGE MEDICATIONS: Please see discharge medication reconciliation. She will take 81 mg of aspirin daily for 6 weeks post ablation. ACTIVITY RESTRICTIONS: Post ablation activity restrictions were reviewed verbally with the patient and she was given written instructions at discharge. She will call our office if she notes any hematoma or pain at her groin site. FOLLOWUP: She has a followup scheduled with Dr. Nicole on May 01 at 1:45. Greater than 30 minutes was spent organizing this discharge. /[id number]/MODL [email or web address]
== END 2017-03-26 11:29 | disposition home or self-care (01) ==
LOC: FSGY 07:06 → F2W 12:48
PROVIDERS: ADMIT Internal Medicine Cardiovascular Disease; ATTEND Internal Medicine Cardiovascular Disease
PROC: 02583ZZ Destruction of Conduction Mechanism, Percutaneous Approach (ICD-10-PCS; principal; 2017-03-25)
PROC: 4A023FZ Measurement of Cardiac Rhythm, Percutaneous Approach (ICD-10-PCS; principal; 2017-03-25)
PROC: 3E033KZ Introduction of Other Diagnostic Substance into Peripheral Vein, Percutaneous Approach (ICD-10-PCS; principal; 2017-03-25)
DX: I47.1 Supraventricular tachycardia (principal)
CPT/HCPCS: 93005; 93306; 93613; 93621; 93623; 93653; C1730; C1731; C1732; C1733; C1893; J1644; J2250; J2704; J2720; J3010; J0461

== ENCOUNTER → 2017-05-22 | Outpatient (CLI) | payer OTHER | LOC: BHFA 09:15 | PROVIDERS: ATTEND Internal Medicine Cardiovascular Disease | DX: R10.9 Unspecified abdominal pain (principal) ==

== ENCOUNTER 2017-08-10 02:26 | Emergency (ER) | payer OTHER ==
[2017-08-10 02:34] VITALS: RESP 16; TEMP 98.1; O2SAT 98
--- NOTE | 2017-08-10 02:41 | CPEKG ---
Heart Rate: 69 RR Interval: 870 P-R Interval: 216 QRSD Interval: 82 QT Interval: 380 QTC Interval: 407 P Ellenwood: 38 QRS Ellenwood: 7 T Wave Ellenwood: 53 EKG Severity - NORMAL ECG - EKG Impression: SINUS RHYTHM Electronically Signed By: Ximena Altman 10-Aug-2017 05:59:49
[2017-08-10 02:43] LABS: PLATELET COUNT 200 10^3/uL (150-400)
--- NOTE | 2017-08-10 02:57 | EDPHY ---
H & P Stated Complaint: felt like heart was racing, Hx SVT Time Seen by Provider: 08/10/17 02:28 HPI/ROS: HPI The patient presents with palpitations which began at about 1:20 a.m. This morning and likely awoke her from sleep. She is brought in by paramedics. She checked her heart rate with a monitor and her heart rate was about 120. She went downstairs and took a half dose of metoprolol and continue to monitor her heart rate. It improved within several minutes after taking the metoprolol. Paramedics report she was in a normal sinus rhythm in the 70s when they picked her up. She has not had any chest pain or shortness of breath with this. She has ala history of AVNRT status post ablation performed by Dr. Nicole on March of 2017. A few days ago she had fleeting palpitations lasting for just a few minutes. She has had no other episodes of palpitations. She does have hyperthyroidism, last had her TSH checked about 7 weeks ago and it was normal.. She is now feeling well without any complaints. REVIEW OF SYSTEMS Constitutional: No fever, no chills. Eyes: No discharge. ENT: No sore throat. Cardiovascular: No chest pain, no palpitations. Respiratory: No cough, no shortness of breath. Gastrointestinal: No abdominal pain, no vomiting. Genitourinary: No hematuria. Musculoskeletal: No back pain. Skin: No rashes. Neurological: No headache. PMHx: Hyperthyroidism, history of AVNRT status post ablation, remote history of breast cancer Soc Hx: Housed PHYSICAL General Appearance: Alert, no distress Eyes: Pupils equal and round no pallor or injection ENT, Mouth: Mucous membranes moist Respiratory: There are no retractions, lungs are clear to auscultation Cardiovascular: Regular rate and rhythm Gastrointestinal: Abdomen is soft and non-tender, no masses, bowel sounds normal Neurological: A&O, moves all extremities Skin: Warm and dry, no rashes Musculoskeletal: Neck is supple non tender Extremities: symmetrical, full range of motion Psychiatric: Patient is oriented X 3, there is no agitation Source: Patient, EMS, Old records Exam Limitations: No limitations - Personal History Current Tetanus/Diphtheria Vaccine: Yes Current Tetanus Diphtheria and Acellular Pertussis (TDAP): Yes - Medical/Surgical History Hx Asthma: No Hx Chronic Respiratory Disease: No Hx Diabetes: No Hx Cardiac Disease: No Hx Renal Disease: No Hx Cirrhosis: No Hx Alcoholism: No Hx HIV/AIDS: No Hx Splenectomy or Spleen Trauma: No Other PMH: hyperthyroid. SVT Breast CX 18 years ago (remission) - Social History Smoking Status: Never smoked Constitutional: Initial Vital Signs Temperature (C) 36.7 C 08/10/17 02:32 Heart Rate 71 08/10/17 02:32 Respiratory Rate 16 08/10/17 02:32 Blood Pressure 146/80 H 08/10/17 02:32 O2 Sat (%) 98 08/10/17 02:32 O2 Delivery Mode Room Air Allergies/Adverse Reactions: ciprofloxacin [From Cipro] Allergy (Verified 08/10/17 02:29) Penicillins Allergy (Verified 08/10/17 02:29) Hives Sulfa (Sulfonamide Antibiotics) [Sulfa(Sulfonamide Antibiotics)] Allergy ( Verified 08/10/17 02:29) Hives Home Medications: Medication Instructions Recorded Methimazole [Tapazole 5MG (*)] 5 mg PO MWF 05/23/12 Clobetasol 0.05% [Temovate Cream] 1 alex TP WE@03/18/17 Estradiol [Estrace Vaginal (*)] 1 alex VG MWF@03/18/17 Glucosamine Sulfate [Glucosamine 500 mg PO BID 03/18/17 Sulfate 500 MG (*)] Herbals/Supplements -Info Only 1 ea PO DAILY 03/18/17 Methimazole [Tapazole 5MG (*)] 2.5 mg PO SUTUTHSA 03/18/17 Aspirin [Aspirin 81mg (*)] 81 mg PO DAILY tab.ec 03/26/17 Medical Decision Making - Diagnostics EKG Interpretation: EKG: Complete interpretation has been separately recorded in the [facility] archive. Summary impression: Normal sinus rhythm Differential Diagnosis: This is a 77-year-old female with history of hyperthyroidism and AVNRT with episodes of SVT status post cardiac ablation who presents with an episode of palpitations lasting for several minutes and improved with metoprolol at home. I suspect she was in SVT, and likely the metoprolol broke it. Here, she is in a normal sinus rhythm with no complaints. In the emergency department, patient was monitored for about an hour and a half and was in a normal sinus rhythm the entire time. She continued to feel well. EKG showed no signs of ischemia. Labs were checked and were unremarkable except for elevated TSH. She does have a history of hyperthyroidism and is on medications. She was advised to follow up with her records technician for this. She will be discharged home. I have instructed to follow up with her instrument adjuster as an outpatient. - Data Points Laboratory Results: Laboratory Results 08/10/17 02:30 08/10/17 02:30 08/10/17 08/10/17 08/10/17 02:30 02:30 02:30 WBC 6.11 10^3/uL 10^3/uL (3.80-9.50) RBC 4.97 10^6/uL 10^6/uL (4.18-5.33) Hgb 14.5 g/dL g/dL (12.6-16.3) Hct 42.8 % % (38.0-47.0) MCV 86.1 fL fL (81.5-99.8) MCH 29.2 pg pg (27.9-34.1) MCHC 33.9 g/dL g/dL (32.4-36.7) RDW 13.7 % % (11.5-15.2) Plt Count 200 10^3/uL 10^3/uL (150-400) MPV 10.7 fL fL (8.7-11.7) Neut % (Auto) 55.7 % % (39.3-74.2) Lymph % (Auto) 30.6 % % (15.0-45.0) Blount % (Auto) 10.0 % % (4.5-13.0) Eos % (Auto) 2.0 % % (0.6-7.6) Baso % (Auto) 1.0 % % (0.3-1.7) Nucleat RBC Rel Count 0.0 % % (0.0-0.2) Absolute Neuts (auto) 3.41 10^3/uL 10^3/uL (1.70-6.50) Absolute Lymphs (auto) 1.87 10^3/uL 10^3/uL (1.00-3.00) Absolute Monos (auto) 0.61 10^3/uL 10^3/uL (0.30-0.80) Absolute Eos (auto) 0.12 10^3/uL 10^3/uL (0.03-0.40) Absolute Basos (auto) 0.06 10^3/uL 10^3/uL (0.02-0.10) Absolute Nucleated RBC 0.00 10^3/uL 10^3/uL (0-0.01) Immature Gran % 0.7 % % (0.0-1.1) Immature Gran # 0.04 10^3/uL 10^3/uL (0.00-0.10) Sodium 138 mEq/L mEq/L (135-145) Potassium 4.0 mEq/L mEq/L (3.5-5.2) Chloride 101 mEq/L mEq/L (97-110) Carbon Dioxide 26 mEq/l mEq/l (22-31) Anion Gap 11 mEq/L mEq/L (8-16) BUN 21 mg/dL mg/dL (7-23) Creatinine 0.7 mg/dL mg/dL (0.6-1.0) Estimated GFR > 60 Glucose 84 mg/dL mg/dL (70-100) Calcium 9.1 mg/dL mg/dL (8.5-10.4) Total Bilirubin 0.5 mg/dL mg/dL (0.1-1.4) AST 38 IU/L IU/L (14-46) ALT 44 IU/L IU/L (9-52) Alkaline Phosphatase 83 IU/L IU/L (38-126) Total Protein 7.2 g/dL g/dL (6.3-8.2) Albumin 4.4 g/dL g/dL (3.5-5.0) TSH 14.800 uIU/mL H uIU/mL (0.465-4.680) Departure - Departure Disposition: Home, Routine, Self-Care Clinical Impression: Palpitations, Elevated TSH Condition: Good Instructions: Supraventricular Tachycardia (ED) Additional Instructions: Please follow-up with Dr. Nicole in the next few weeks to determined if any further treatment is needed. Your TSH today was elevated and because of this you should follow up with your doctor. Return to the emergency department if your worse in any way. Referrals: Ab Nicole MD [Medical Doctor] - As per Instructions Edgardo Jansen MD [Primary Care Provider] - As per Instructions
[2017-08-10 04:12] VITALS: BP 136/78; PULSE 68
== END 2017-08-10 04:00 | disposition home or self-care (01) ==
LOC: EDUNIT#
DX: R00.2 Palpitations (principal); R94.6 Abnormal results of thyroid function studies; Z79.82 Long term (current) use of aspirin

== ENCOUNTER → 2017-10-02 | Outpatient (CLI) | payer OTHER | LOC: BHFA 13:45 | PROVIDERS: ATTEND Internal Medicine Cardiovascular Disease | DX: I47.1 Supraventricular tachycardia (principal) ==

== ENCOUNTER → 2017-10-23 | Outpatient (CLI) | payer OTHER ==
[~2017-10-23] MED LIST: IOPAMIDOL (ISOVUE-300) 100 ML BTL ONE
== END ==
LOC: FIMAGING 10:05
PROVIDERS: ATTEND Surgery
DX: I83.892 Varicose veins of left lower extremity with other complications (principal); K57.30 Diverticulosis of large intestine without perforation or abscess without bleeding
CPT/HCPCS: 74177; Q9967

== ENCOUNTER 2018-01-29 12:57 | Emergency (ER) | payer OTHER ==
[2018-01-29] MEDS ORDERED: MECLIZINE HCL 25 MG TAB PO ONE (13:35)
--- NOTE | 2018-01-29 13:46 | EDPHY ---
H & P Time Seen by Provider: 01/29/18 13:12 HPI/ROS: CHIEF COMPLAINT: " Vertigo" HISTORY OF PRESENT ILLNESS: 77-year-old woman has had vertigo in the remote past but does not really remember the details. She did wake up yesterday morning at 7:15 a.m. And had about 10-15 minutes of feeling lightheaded but that completely resolved. She felt fine the rest of the day and then today it just after 6:00 a.m. She woke up and felt severe "vertigo" which she describes as the "turning room" even when she is remaining still. It was associated with nausea and was severe but then improved and over the rest the day is only really present when she lies down and turns her head to the left. Not associated with weakness or numbness in extremities, speech difficulty, confusion, neck pain. REVIEW OF SYSTEMS: Eye: no change in vision ENT: no sore throat Cardiac: no chest pain or syncope Pulmonary: no cough or SOB Abdomen: no vomiting, diarrhea, abdominal pain Musculoskeletal: no back pain, some intermittent trouble with morning leg numbness unchanged from previous. Skin: no rash Neuro: Patient has had intermittent headaches over the last week including one 6 days ago which lasted from nighttime until early afternoon. Does not currently have a headache. Constitutional: no fever : no urinary symptoms A comprehensive 10 point review of systems is otherwise negative aside from elements mentioned in the history of present illness. PAST MEDICAL HISTORY: Includes hyperthyroid, SVT, breast cancer Social history: Here with her daughter General Appearance: Alert and conversant, cooperative. Eyes: No scleral icterus. Pupils equal reactive extraocular motion intact. Very slight nystagmus on looking to the left. ENT, Mouth: Normal mucous membranes. Normal tympanic membranes. Respiratory: Normal respiratory effort, breath sounds equal, lungs are clear to auscultation. Cardiovascular: Regular rate and rhythm. No carotid bruit. Gastrointestinal: Abdomen is soft and non tender. Neurological: Alert, face symmetric, normal motor and sensory in extremities. [id number] normal bilaterally, speech fluent. Normal dorsiflexion and plantar flexion of both feet. Ambulatory, not ataxic. Skin: Warm and dry, no rashes. Musculoskeletal: No peripheral edema. Psychiatric: Not agitated. Emergency Department course/MDM: Yesterday sounds like lightheaded near syncope but was not associated with diaphoresis or palpitations or other symptoms of hypoglycemia. The symptoms resolved completely. Today appears to be more likely to be peripheral vertigo with rapid onset, triggered by lying down and looking to the left, normal neurologic examination here. Her primary care office Dr. Ross sent her here for imaging and further evaluation, per the daughter. With headache and intermittent vertigo think it is reasonable to proceed with noncontrast head CT screening to evaluate for bleeding. I think that vertebrobasilar insufficiency or cerebellar stroke or both unlikely. EKG shows sinus rhythm, I think malignant dysrhythmia unlikely. Negative head CT. Treatment with meclizine, outpatient follow-up. Patient states she is comfortable with plan. Smoking Status: Never smoked Constitutional: Initial Vital Signs Temperature (C) 36.8 C 01/29/18 13:02 Heart Rate 75 01/29/18 13:02 Respiratory Rate 16 01/29/18 13:02 Blood Pressure 130/87 H 01/29/18 13:02 O2 Sat (%) 97 01/29/18 13:02 O2 Delivery Mode Room Air Allergies/Adverse Reactions: ciprofloxacin [From Cipro] Allergy (Verified 08/10/17 02:29) Penicillins Allergy (Verified 08/10/17 02:29) Hives Sulfa (Sulfonamide Antibiotics) [Sulfa(Sulfonamide Antibiotics)] Allergy ( Verified 08/10/17 02:29) Hives Home Medications: Medication Instructions Recorded Methimazole [Tapazole 5MG (*)] 5 mg PO MWF 05/23/12 Clobetasol 0.05% [Temovate Cream] 1 alex TP WE@03/18/17 Estradiol [Estrace Vaginal (*)] 1 alex VG MWF@03/18/17 Glucosamine Sulfate [Glucosamine 500 mg PO BID 03/18/17 Sulfate 500 MG (*)] Herbals/Supplements -Info Only 1 ea PO DAILY 03/18/17 Methimazole [Tapazole 5MG (*)] 2.5 mg PO SUTUTHSA 03/18/17 Aspirin [Aspirin 81mg (*)] 81 mg PO DAILY tab.ec 03/26/17 Meclizine HCl [Meclizine HCl 25 mg 25 mg PO Q6 PRN #15 tab 01/29/18 (RX,OTC)] Medical Decision Making - Diagnostics EKG Interpretation: 12-lead EKG interpreted by me; official reading is in computer system. My interpretation is sinus rhythm rate 69 otherwise normal. Imaging Results: Imaging Impressions Head CT 01/29/18 13:35 Impression: 1. No significant intracranial abnormality seen. If symptoms worsen, additional imaging may be necessary. Findings discussed with Hiram Monteiro M.D. at 14:23 hour, 01/29/2018. Imaging: Discussed imaging studies w/ electronic imager Radiologist Differential Diagnosis: Differential diagnosis considered for dizziness including but not limited to peripheral and central causes of vertigo, orthostatic causes including dehydration, and blood loss. - Data Points Medications Given: Discontinued Medications Meclizine HCl (Meclizine Hcl) 25 mg PO EDNOW ONE Stop: 01/29/18 13:36 Last Admin: 01/29/18 14:07 Dose: 25 mg Departure - Departure Disposition: Home, Routine, Self-Care Clinical Impression: Vertigo Condition: Good Instructions: Vertigo (ED) Referrals: Edgardo Jansen MD [Primary Care Provider] - As per Instructions Prescriptions: Meclizine HCl [Meclizine HCl 25 mg (RX,OTC)] 25 mg PO Q6 PRN #15 tab PRN Reason: Dizziness
--- NOTE | 2018-01-29 13:47 | CPEKG ---
Test Reason : OPEN Blood Pressure : / mmHG Vent. Rate : 069 BPM Atrial Rate : 068 BPM P-R Int : 204 ms QRS Dur : 087 ms QT Int : 380 ms P-R-T Axes : 037 021 046 degrees QTc Int : 407 ms Sinus rhythm Confirmed by Hiram Monteiro ([id number]) on 01/29/2018 1:46:46 PM Referred By: Confirmed By:Hiram Monteiro
[2018-01-29 14:44] VITALS: BP 145/82
== END 2018-01-29 14:44 | disposition home or self-care (01) ==
DX: R42 Dizziness and giddiness (principal); I47.1 Supraventricular tachycardia; E05.90 Thyrotoxicosis, unspecified without thyrotoxic crisis or storm; Z85.3 Personal history of malignant neoplasm of breast

== ENCOUNTER 2018-06-21 09:06 | Emergency (ER) | payer OTHER ==
[2018-06-21 09:28] LABS: PLATELET COUNT 217 10^3/uL (150-400)
--- NOTE | 2018-06-21 09:28 | EDPHY ---
H & P Time Seen by Provider: 06/21/18 09:27 HPI/ROS: CHIEF COMPLAINT: Leg weakness HISTORY OF PRESENT ILLNESS: Patient is a long history of intermittent leg weakness and has had workup in the past including MRI spine and specialist consultation. She presents today by EMS with worsening leg weakness this morning. She woke up at 8:10 a.m. And felt like her legs were a little bit weak and tingly and realize she could use the bedside commode. She lay in bed and was finally able to call for assistance, presents with her daughter saying her legs feel better but not totally back to normal. No headache and no visual symptoms. No trouble with speech or thought or upper extremities. No fever or back pain or new injury or trauma. REVIEW OF SYSTEMS: Eye: no change in vision ENT: no sore throat Cardiac: no chest pain or syncope Pulmonary: no cough or SOB Abdomen: no vomiting, diarrhea, abdominal pain Musculoskeletal: Left wrist in a cast after recent fracture Skin: no rash Neuro: HPI Constitutional: no fever : no urinary symptoms A comprehensive 10 point review of systems is otherwise negative aside from elements mentioned in the history of present illness. PAST MEDICAL HISTORY: Includes SVT, breast cancer 18 years ago, hyperthyroid. Social history: Patient's last year on May 06. She is here with her daughter. General Appearance: Alert and conversant, cooperative. Eyes: No scleral icterus. ENT, Mouth: Normal mucous membranes. Not dry. Respiratory: Normal respiratory effort, breath sounds equal, lungs are clear to auscultation. Cardiovascular: Regular rate and rhythm. Gastrointestinal: Abdomen is soft and non tender. Neurological: Alert, face symmetric, normal motor and sensory in extremities. Toes are downgoing bilaterally, normal extensor hallucis strength on both feet, patellar reflexes 2+ and symmetric, no clonus. She can lift each leg off the bed independently. She can walk to the bathroom without assistance. Skin: Warm and dry, no rashes. Musculoskeletal: Left wrist is in a yellow fiberglass cast. Psychiatric: Not agitated. Emergency Department course/MDM: Patient has had similar symptoms in the past, evaluation by multiple physicians without definitive diagnosis. Had similar symptoms this morning which were just more severe and lasted a little bit longer than usual. Think it is unlikely she is having stroke or transverse myelitis or spinal cord problem or cauda equina syndrome or Guillain-[place]. Results reviewed and discussed at 11:00 a.m. Her symptoms almost completely resolved in the emergency department and she was ambulatory at discharge. She states she is comfortable going home with outpatient follow-up which I think is reasonable. EMS did not document any tachycardia, she asked me about increasing her metoprolol but I think it is unlikely she had recurrent SVT and I recommended she not increased that medication because of potential side effect of weakness and fatigue. Smoking Status: Never smoked Constitutional: Initial Vital Signs Temperature (C) 36.6 C 06/21/18 09:16 Heart Rate 86 06/21/18 09:16 Respiratory Rate 18 06/21/18 09:16 Blood Pressure 144/85 H 06/21/18 09:16 O2 Sat (%) 99 06/21/18 09:16 O2 Delivery Mode Room Air Allergies/Adverse Reactions: ciprofloxacin [From Cipro] Allergy (Verified 06/21/18 09:18) Penicillins Allergy (Verified 06/21/18 09:18) Hives Sulfa (Sulfonamide Antibiotics) [Sulfa(Sulfonamide Antibiotics)] Allergy ( Verified 06/21/18 09:18) Hives Home Medications: Medication Instructions Recorded Methimazole [Tapazole 5MG (*)] 5 mg PO MWF 05/23/12 Clobetasol 0.05% [Temovate Cream] 1 alex TP WE@03/18/17 Estradiol [Estrace Vaginal (*)] 1 alex VG MWF@03/18/17 Glucosamine Sulfate [Glucosamine 500 mg PO BID 03/18/17 Sulfate 500 MG (*)] Herbals/Supplements -Info Only 1 ea PO DAILY 03/18/17 Methimazole [Tapazole 5MG (*)] 2.5 mg PO SUTUTHSA 03/18/17 Aspirin [Aspirin 81mg (*)] 81 mg PO DAILY tab.ec 03/26/17 Meclizine HCl [Meclizine HCl 25 mg 25 mg PO Q6 PRN #15 tab 01/29/18 (RX,OTC)] Medical Decision Making - Data Points Laboratory Results: Laboratory Results 06/21/18 09:12 06/21/18 09:12 06/21/18 06/21/18 06/21/18 09:57 09:12 09:12 WBC 3.75 10^3/uL L 10^3/uL (3.80-9.50) RBC 5.26 10^6/uL 10^6/uL (4.18-5.33) Hgb 15.5 g/dL g/dL (12.6-16.3) Hct 45.8 % % (38.0-47.0) MCV 87.1 fL fL (81.5-99.8) MCH 29.5 pg pg (27.9-34.1) MCHC 33.8 g/dL g/dL (32.4-36.7) RDW 13.0 % % (11.5-15.2) Plt Count 217 10^3/uL 10^3/uL (150-400) MPV 10.5 fL fL (8.7-11.7) Neut % (Auto) 53.9 % % (39.3-74.2) Lymph % (Auto) 32.5 % % (15.0-45.0) [place] % (Auto) 9.6 % % (4.5-13.0) Eos % (Auto) 2.1 % % (0.6-7.6) Baso % (Auto) 1.1 % % (0.3-1.7) Nucleat RBC Rel Count 0.0 % % (0.0-0.2) Absolute Neuts (auto) 2.02 10^3/uL 10^3/uL (1.70-6.50) Absolute Lymphs (auto) 1.22 10^3/uL 10^3/uL (1.00-3.00) Absolute Monos (auto) 0.36 10^3/uL 10^3/uL (0.30-0.80) Absolute Eos (auto) 0.08 10^3/uL 10^3/uL (0.03-0.40) Absolute Basos (auto) 0.04 10^3/uL 10^3/uL (0.02-0.10) Absolute Nucleated RBC 0.00 10^3/uL 10^3/uL (0-0.01) Immature Gran % 0.8 % % (0.0-1.1) Immature Gran # 0.03 10^3/uL 10^3/uL (0.00-0.10) Sodium 137 mEq/L mEq/L (135-145) Potassium 3.7 mEq/L mEq/L (3.5-5.2) Chloride 104 mEq/L mEq/L (97-110) Carbon Dioxide 25 mEq/l mEq/l (22-31) Anion Gap 8 mEq/L mEq/L (6-14) BUN 16 mg/dL mg/dL (7-23) Creatinine 0.7 mg/dL mg/dL (0.6-1.0) Estimated GFR > 60 Glucose 99 mg/dL mg/dL (70-100) Calcium 9.5 mg/dL mg/dL (8.5-10.4) Urine Color YELLOW Urine Appearance MODERATELY TURBID Urine pH 9.0 H (5.0-7.5) Ur Specific [place] 1.011 (1.002-1.030) Urine Protein NEGATIVE (NEGATIVE) Urine Ketones NEGATIVE (NEGATIVE) Urine Blood NEGATIVE (NEGATIVE) Urine Nitrate NEGATIVE (NEGATIVE) Urine Bilirubin NEGATIVE (NEGATIVE) Urine Urobilinogen NEGATIVE EU EU (0.2-1.0) Ur Leukocyte Esterase NEGATIVE (NEGATIVE) Urine Glucose NEGATIVE (NEGATIVE) Medications Given: Discontinued Medications Metoprolol Succinate (Toprol Xl) 12.5 mg PO EDNOW ONE Stop: 06/21/18 10:28 Last Admin: 06/21/18 10:33 Dose: 12.5 mg Departure - Departure Disposition: Home, Routine, Self-Care Clinical Impression: Bilateral leg weakness Condition: Good Instructions: Weakness (ED) Referrals: Chirag Dias NP [Certified Nurse Practioner] - As per Instructions Edgardo Jansen MD [Primary Care Provider] - As per Instructions
[2018-06-21] MEDS ORDERED: METOPROLOL SUCCINATE XR 25 MG TAB PO ONE (10:27)
[2018-06-21 11:15] VITALS: BP 117/72
== END 2018-06-21 11:15 | disposition home or self-care (01) ==
LOC: EDUNIT#
DX: M62.81 Muscle weakness (generalized) (principal); E05.90 Thyrotoxicosis, unspecified without thyrotoxic crisis or storm

== ENCOUNTER 2018-09-16 06:38 | Emergency (ER) | payer OTHER ==
[2018-09-16 06:46] VITALS: BP 144/92
--- NOTE | 2018-09-16 06:50 | EDPHY ---
H & P Time Seen by Provider: 09/16/18 06:39 HPI/ROS: CHIEF COMPLAINT: Racing heart rate and high blood pressure HISTORY OF PRESENT ILLNESS: Patient is been under lot of stress and she lost her this past April. She has a residential appraiser today scheduled in [place] for a pediatric dental [place]. She woke up around [phone] with a feeling that her heart was racing and regular and fast lasting 10-12 minutes. She says it felt like her previous SVT. She did not have chest pain shortness of breath or syncope. Resolved spontaneously but that she continue to take her blood pressure and it was as high as 150/90 and she came in for evaluation. Denies change in urination, headache or visual symptoms, weakness or numbness in extremities. REVIEW OF SYSTEMS: Eye: no change in vision ENT: no sore throat Cardiac: HPI Pulmonary: no cough or SOB Abdomen: no vomiting, diarrhea, abdominal pain Musculoskeletal: no back pain Skin: no rash Neuro: no headache Constitutional: no fever : no urinary symptoms A comprehensive 10 point review of systems is otherwise negative aside from elements mentioned in the history of present illness. PAST MEDICAL HISTORY: Includes hypertension, SVT, breast cancer. History of ablation. Social history: Nonsmoker General Appearance: Alert and conversant, cooperative. Eyes: No scleral icterus. ENT, Mouth: Normal mucous membranes. Respiratory: Normal respiratory effort, breath sounds equal, lungs are clear to auscultation. Cardiovascular: Regular rate and rhythm. No murmur. Gastrointestinal: Abdomen is soft and non tender. Neurological: Alert, face symmetric, normal motor and sensory in extremities. Skin: Warm and dry, no rashes. Musculoskeletal: No peripheral edema. No calf tenderness. Psychiatric: Mildly anxious. Emergency Department course/MDM: EKG shows sinus rhythm, it is possible that she had SVT earlier. I think that atrial fibrillation or atrial flutter or ventricular tachycardia or other malignant dysrhythmia or much less likely. She has hypertension but has a history of high blood pressure and does not clinically have high likelihood of end-organ damage or acute hypertensive emergency. Stable for discharge. Smoking Status: Never smoked Constitutional: Initial Vital Signs Temperature (C) 36.8 C 09/16/18 06:42 Heart Rate 82 09/16/18 06:42 Respiratory Rate 18 09/16/18 06:42 Blood Pressure 144/92 H 09/16/18 06:42 O2 Sat (%) 96 09/16/18 06:42 O2 Delivery Mode Room Air Allergies/Adverse Reactions: ciprofloxacin [From Cipro] Allergy (Verified 09/16/18 06:41) Penicillins Allergy (Verified 09/16/18 06:41) Hives Sulfa (Sulfonamide Antibiotics) [Sulfa(Sulfonamide Antibiotics)] Allergy ( Verified 09/16/18 06:41) Hives Home Medications: Medication Instructions Recorded Methimazole [Tapazole 5MG (*)] 5 mg PO MWF 05/23/12 Clobetasol 0.05% [Temovate Cream] 1 alex TP WE@21 03/18/17 Herbals/Supplements -Info Only 1 ea PO DAILY 03/18/17 Methimazole [Tapazole 5MG (*)] 2.5 mg PO SUTUTHSA 03/18/17 Aspirin [Aspirin 81mg (*)] 81 mg PO DAILY tab.ec 03/26/17 Medical Decision Making - Diagnostics EKG Interpretation: 12-lead EKG interpreted by me; official reading is in computer system. My interpretation is sinus rhythm rate 75 normal intervals. Departure - Departure Disposition: Home, Routine, Self-Care Clinical Impression: Palpitations Condition: Good Instructions: Heart Palpitations (ED) Referrals: Lolita Leach MD [Medical Doctor] - As per Instructions
--- NOTE | 2018-09-16 06:52 | CPEKG ---
Test Reason : OPEN Blood Pressure : / mmHG Vent. Rate : 079 BPM Atrial Rate : 079 BPM P-R Int : 180 ms QRS Dur : 086 ms QT Int : 372 ms P-R-T Axes : 075 026 062 degrees QTc Int : 427 ms Sinus rhythm Confirmed by Hiram Monteiro ([id number]) on 09/16/2018 6:51:49 AM Referred By: Hiram Monteiro Confirmed By:Hiram Monteiro
== END 2018-09-16 07:35 | disposition home or self-care (01) ==
LOC: EDUNIT#
DX: R00.2 Palpitations (principal); I10 Essential (primary) hypertension

== ENCOUNTER 2018-09-16 09:40 | Emergency (ER) | payer OTHER ==
--- NOTE | 2018-09-16 09:46 | EDPHY ---
H & P Time Seen by Provider: 09/16/18 09:46 HPI/ROS: CHIEF COMPLAINT: Took extra pills accidentally HISTORY OF PRESENT ILLNESS: Took 12.5 mg metoprolol this morning and then accidentally took two 25 mg tablets at approximately 9:30 a.m.. She was seen earlier by myself for palpitations and was stable and discharged. Denies intentional overdose. Not lightheaded or dizzy, no syncope. REVIEW OF SYSTEMS: Eye: no change in vision ENT: no sore throat Cardiac: No further palpitations, no syncope Pulmonary: no cough or SOB Abdomen: no vomiting, diarrhea, abdominal pain Musculoskeletal: no back pain Skin: no rash Neuro: no headache Constitutional: no fever : no urinary symptoms A comprehensive 10 point review of systems is otherwise negative aside from elements mentioned in the history of present illness. PAST MEDICAL HISTORY: Includes hypertension, SVT, breast cancer. History of ablation. Social history: Nonsmoker General Appearance: Alert and conversant, cooperative. Eyes: No scleral icterus. ENT, Mouth: Normal mucous membranes. Respiratory: Normal respiratory effort, breath sounds equal, lungs are clear to auscultation. Cardiovascular: Regular rate and rhythm. No murmur. Gastrointestinal: Abdomen is soft and non tender. Neurological: Alert, face symmetric, normal voice, ambulatory. Skin: Warm and dry, no rashes. Musculoskeletal: No peripheral edema. No calf tenderness. Psychiatric: Mildly anxious. Emergency Department course/MDM: Accidental medication overdose total of 50 mg extra oral metoprolol. Initial heart rate 106 and blood pressure 127. Poison Control consult obtained, . Less than 5mg/kg metoprolol and asymptomatic, stable for discharge recommended by poison Control , with precautions. Smoking Status: Never smoked Constitutional: Initial Vital Signs Temperature (C) 36.6 C 09/16/18 09:46 Heart Rate 106 H 09/16/18 09:46 Respiratory Rate 16 09/16/18 09:46 Blood Pressure 127/72 H 09/16/18 09:46 O2 Sat (%) 99 09/16/18 09:46 O2 Delivery Mode Room Air Allergies/Adverse Reactions: ciprofloxacin [From Cipro] Allergy (Verified 09/16/18 09:46) Penicillins Allergy (Verified 09/16/18 09:46) Hives Sulfa (Sulfonamide Antibiotics) [Sulfa(Sulfonamide Antibiotics)] Allergy ( Verified 09/16/18 09:46) Hives Home Medications: Medication Instructions Recorded Methimazole [Tapazole 5MG (*)] 5 mg PO MWF 05/23/12 Clobetasol 0.05% [Temovate Cream] 1 alex TP WE@21 03/18/17 Herbals/Supplements -Info Only 1 ea PO DAILY 03/18/17 Methimazole [Tapazole 5MG (*)] 2.5 mg PO SUTUTHSA 03/18/17 Aspirin [Aspirin 81mg (*)] 81 mg PO DAILY tab.ec 03/26/17 Metoprolol Succinate 09/16/18 Departure - Departure Disposition: Home, Routine, Self-Care Clinical Impression: Accidental drug ingestion Qualifiers: Encounter type: initial encounter Qualified Code(s): T50.901A - Poisoning by unspecified drugs, medicaments and biological substances, accidental ( unintentional), initial encounter Condition: Good Instructions: Metoprolol (By mouth) Additional Instructions: Return for dizziness or lightheadedness or passing out. Referrals: Edgardo Jansen MD [Primary Care Provider] - As per Instructions
[2018-09-16 10:17] VITALS: BP 113/75
== END 2018-09-16 10:10 | disposition home or self-care (01) ==
DX: T44.7X1A Poisoning by beta-adrenoreceptor antagonists, accidental (unintentional), initial encounter (principal); I10 Essential (primary) hypertension; Z85.3 Personal history of malignant neoplasm of breast

== ENCOUNTER → 2018-10-17 | Outpatient (CLI) | payer OTHER | LOC: FIMAGING 14:39 ==